=== PATIENT | female | born 1975 ===

== ENCOUNTER 2017-05-08 16:16 | Emergency (ER) | payer OTHER ==
[~2017-05-08] VITALS: Ht 172.7 cm; Wt 58.3 kg
[2017-05-08 16:20] VITALS: BP 192/112; PULSE 105; RESP 16; TEMP 98.6; O2SAT 98
[2017-05-08 16:30] VITALS: BP 177/98; PULSE 87; RESP 18; O2SAT 99
--- NOTE | 2017-05-08 16:41 | PD ---
HPI Chief Complaint: General Weakness Time Seen by Provider: 16:24 Travel History International Travel<30 days: No Contact w/Intl Traveler<30days: No Traveled to known affect area: No History of Present Illness HPI 41-year-old female complains of chest pain, shortness of breath, dizziness, nausea and generalized malaise. Patient has history of AML which was diagnosed 6 years ago. Patient received chemotherapy and bone marrow transplant. Patient 's in remission for the past 6 years. Patient has been seen at [facility] in [place]. Patient states that the symptoms started about 2 hours prior to coming to the emergency room. Patient denies any headache. Patient denies any visual change. Patient denies any neck pain. Patient states that the chest pain is a heaviness across anterior chest wall. Patient denies any pain radiation. Patient denies palpitation. Patient denies diaphoresis. Patient denies coughing congestion fever chills. Patient denies abdominal pain. Patient states that she has nausea but no vomiting or diarrhea. Patient states that she noticed some discoloration on the left hand second third and fourth fingers also the right fourth finger. Patient states that she had the same symptoms when she was diagnosed with AML 6 years ago. Patient was on control pills until 2 months ago. PFSH Past Medical History ?: Unknown LMP: STATES 2ND WEEK IN MARCH Social History Tobacco Use: No Allergies-Medications (Allergen,Severity, Reaction): Coded Allergies: No Known Allergies (Unverified , 05/08/17) Reported Meds & Prescriptions Reported Meds & Active Scripts Active Bactrim DS (Sulfamethoxazole-Trimethoprim) 800-160 Mg Tab 1 Tab PO BID Review of Systems General / Constitutional: No: Fever Eyes: No: Visual changes HENT: Positive: Lightheadedness, No: Headaches Cardiovascular: Positive: Chest Pain or Discomfort Respiratory: Positive: Shortness of Breath Gastrointestinal: Positive: Nausea, No: Abdominal Pain Genitourinary: No: Dysuria Musculoskeletal: No: Pain Skin: No Rash Neurologic: No: Weakness Psychiatric: No: Depression Endocrine: No: Polydipsia Hematologic/Lymphatic: No: Easy Bruising Physical Exam Narrative GENERAL: Well-nourished, well-developed patient. SKIN: Focused skin assessment warm/dry. Patient has mild ecchymosis noted on the dorsal aspect of middle and distal phalange of the left hand second third and fourth fingers. Patient has mild ecchymosis on the middle phalange right fourth finger middle phalange dorsally. Full range of motion all fingers. HEAD: Normocephalic. EYES: No scleral icterus. No injection or drainage. NECK: Supple, trachea midline. No JVD or lymphadenopathy. CARDIOVASCULAR: Regular rate and rhythm without murmurs, gallops, or rubs. RESPIRATORY: Breath sounds equal bilaterally. No accessory muscle use. GASTROINTESTINAL: Abdomen soft, non-tender, nondistended. MUSCULOSKELETAL: No cyanosis, or edema. BACK: Nontender without obvious deformity. No CVA tenderness. Neurologic exam normal. Data Data Last Documented VS Vital Signs Date Time Temp Pulse Resp B/P (MAP) Pulse Ox O2 Delivery O2 Flow Rate FiO2 05/08/17 18:25 05/08/17 17:59 72 16 98 Room Air 05/08/17 16:20 98.6 Orders Orders Electrocardiogram (05/08/17 16:34) Complete Blood Count With Diff (05/08/17 16:34) Comprehensive Metabolic Panel (05/08/17 16:34) Creatine Kinase (Cpk) (05/08/17 16:34) Troponin I (05/08/17 16:34) Prothrombin Time / Inr (Pt) (05/08/17 16:34) Act Partial Throm Time (Ptt) (05/08/17 16:34) Urinalysis - C+S If Indicated (05/08/17 16:34) Thyroid Stimulating Hormone (05/08/17 16:34) Chest, Single Ap (05/08/17 16:34) Iv Access Insert/Monitor (05/08/17 16:34) Ecg Monitoring (05/08/17 16:34) Oximetry (05/08/17 16:34) Ed Urine Pregnancytest Poc (05/08/17 16:34) D-Dimer (05/08/17 16:34) Urine Culture (05/08/17 16:55) Labs Laboratory Tests Test 05/08/17 16:55 White Blood Count 4.7 TH/MM3 Red Blood Count 4.69 MIL/MM3 Hemoglobin 13.7 GM/DL Hematocrit 41.4 % Mean Corpuscular Volume 88.3 FL Mean Corpuscular Hemoglobin 29.3 PG Mean Corpuscular Hemoglobin Concent 33.2 % Red Cell Distribution Width 12.5 % Platelet Count 210 TH/MM3 Mean Platelet Volume 6.9 FL Neutrophils (%) (Auto) 59.7 % Lymphocytes (%) (Auto) 32.2 % Monocytes (%) (Auto) 6.6 % Eosinophils (%) (Auto) 1.0 % Basophils (%) (Auto) 0.5 % Neutrophils # (Auto) 2.9 TH/MM3 Lymphocytes # (Auto) 1.5 TH/MM3 Monocytes # (Auto) 0.3 TH/MM3 Eosinophils # (Auto) 0.0 TH/MM3 Basophils # (Auto) 0.0 TH/MM3 CBC Comment DIFF FINAL Differential Comment Prothrombin Time 10.7 SEC Prothromb Time International Ratio 1.0 RATIO Activated Partial Thromboplast Time 26.4 SEC D-Dimer Quantitative (PE/DVT) 0.21 MG/L FEU Urine Color YELLOW Urine Turbidity CLEAR Urine pH 6.0 Urine Specific Gantt 1.027 Urine Protein NEG mg/dL Urine Glucose (UA) NEG mg/dL Urine Ketones TRACE mg/dL Urine Occult Blood MOD Urine Nitrite NEG Urine Bilirubin NEG Urine Leukocyte Esterase NEG Urine RBC 0-3 /hpf Urine WBC 9-14 /hpf Urine Squamous Epithelial Cells 0-5 /hpf Urine Hyaline Casts 3-5 /lpf Urine Fine Granular Casts 0-2 /lpf Urine Mucus MANY /lpf Microscopic Urinalysis Comment CULTURE INDICATED Blood Urea Nitrogen 14 MG/DL Creatinine 1.00 MG/DL Random Glucose 93 MG/DL Total Protein 7.6 GM/DL Albumin 4.1 GM/DL Calcium Level 9.2 MG/DL Alkaline Phosphatase 78 U/L Aspartate Amino Transf (AST/SGOT) 30 U/L Alanine Aminotransferase (ALT/SGPT) 42 U/L Total Bilirubin 0.5 MG/DL Sodium Level 139 MEQ/L Potassium Level 4.0 MEQ/L Chloride Level 104 MEQ/L Carbon Dioxide Level 26.7 MEQ/L Anion Gap 8 MEQ/L Estimat Glomerular Filtration Rate 61 ML/MIN Total Creatine Kinase 98 U/L Troponin I LESS THAN 0.02 NG/ML Thyroid Stimulating Hormone 3rd Gen 2.090 uIU/ML [facility] Medical Decision Making Medical Screen Exam Complete: Yes Emergency Medical Condition: Yes Interpretation(s) Last Impressions Chest X-Ray 05/08/17 2394 Signed Impressions: Service Date/Time: Monday, May 08, 2017 17:16 - CONCLUSION: 1. No acute cardiopulmonary findings. Dain Montoya MD 1800 p.m. EKG shows sinus rhythm nonspecific ST-T wave change. CBC within normal limit. CMP within normal limit. Cardiac enzymes are normal. INR 1.0. D-dimer 0.21. UA positive for WBC. Differential Diagnosis Differential diagnosis including vasovagal reaction, angina, WI, PE, pneumothorax, electrolyte abnormality, dehydration, acute exacerbation of AML. Narrative Course 41-year-old female with dizziness, nausea, chest pain, shortness of breath, discoloration of the fingers. History of AML. Diagnosis Primary Impression: Atypical chest pain Additional Impressions: UTI (urinary tract infection) Qualified Codes: N30.00 - Acute cystitis without hematuria Ecchymosis Patient Instructions: General Instructions Additional Instructions: Bactrim DS as directed. Follow-up with personal physician. Return if worse. Med/Other Pt SpecificInfo: Prescription(s) given Scripts Sulfamethoxazole-Trimethoprim (Bactrim DS) 800-160 Mg Tab 1 TAB PO BID for Infection, #6 TAB 0 Refills Prov: Alli Martin MD 05/08/17 Disposition: 01 DISCHARGE HOME Condition: Stable Alli Martin MD May 08, 2017 16:41
[2017-05-08 16:50] VITALS: RESP 18; O2SAT 98
[2017-05-08 17:00] VITALS: BP 146/96; PULSE 78; RESP 18; O2SAT 99
[2017-05-08 17:08] LABS: AUTOMATED NEUTROPHIL # 2.9 TH/MM3 (1.8-7.7); BASOPHIL % 0.5 % (0.0-2.0); HEMATOCRIT 41.4 % (35.0-46.0); HEMO FLAGS DIFF FINAL; LYMPH % 32.2 % (9.0-44.0); LYMPHOCYTE # 1.5 TH/MM3 (1.0-4.8); MEAN CELL VOLUME 88.3 FL (80.0-100.0); MEAN CORPUSCULAR HEMOGLOBIN 29.3 PG (27.0-34.0); MEAN CORPUSCULAR HGB CONC 33.2 % (32.0-36.0); MONO % 6.6 % (0.0-8.0); NEUT % 59.7 % (16.0-70.0); PLATELET COUNT 210 TH/MM3 (150-450); RED BLOOD COUNT 4.69 MIL/MM3 (4.00-5.30); RED CELL DISTRIBUTION WIDTH 12.5 % (11.6-17.2); WHITE BLOOD COUNT 4.7 TH/MM3 (4.0-11.0)
[2017-05-08 17:09] LABS: BLOOD, URINE MOD (NEG); GLUCOSE,URINE NEG (NEG); KETONE, URINE TRACE mg/dL (NEG); NITRITE,URINE NEG (NEG)
[2017-05-08 17:16] LABS: CHLORIDE 104 MEQ/L (98-107); SODIUM (NA) 139 MEQ/L (136-145)
[2017-05-08 17:18] LABS: URINE COLOR YELLOW (YELLW/STRAW)
[2017-05-08 17:19] LABS: MUCUS URINE MANY /lpf (OCC); RBC, URINE 0-3 /hpf (0-3); SQUAMOUS EPITHELIAL CELL URINE 0-5 /hpf (0-5)
[2017-05-08 17:20] LABS: ANION GAP 8 MEQ/L (5-15); BICARBONATE 26.7 MEQ/L (21.0-32.0); BLOOD UREA NITROGEN 14 MG/DL (7-18); COMMENT (UR) CULTURE INDICATED; CULTURE IF INDICATED CULTURE INDICATED
[2017-05-08 17:22] LABS: APTT (PATIENT) 26.4 SEC (24.3-30.1); PROTHROMBIN TIME - PATIENT 10.7 SEC (9.8-11.6)
[2017-05-08 17:23] LABS: ALT (GPT) 42 U/L (10-53); AST (GOT) 30 U/L (15-37); GLOMERULAR FILTRATION RATE 61 ML/MIN (>89)
[2017-05-08 17:24] LABS: TOTAL BILIRUBIN ADULT 0.5 MG/DL (0.2-1.0)
[2017-05-08 17:25] LABS: ALKALINE PHOSPHATASE 78 U/L (45-117)
[2017-05-08 17:26] LABS: CREATINE KINASE 98 U/L (26-192)
--- NOTE | 2017-05-08 17:29 | RADRPT ---
EXAM DATE/TIME: 05/08/2017 17:16 [facility] COMPARISON: No previous studies available for comparison. INDICATIONS : Chest pressure today. MEDICAL HISTORY : Leukemia. SURGICAL HISTORY : None. ENCOUNTER: Initial ACUITY: 1 day PAIN SCORE: 2/10 LOCATION: Bilateral chest FINDINGS: A single view of the chest demonstrates the lungs to be symmetrically aerated without evidence of mas s, infiltrate or effusion. The cardiomediastinal contours are unremarkable. Osseous structures are intact. CONCLUSION: 1. No acute cardiopulmonary findings. Dain Montoya MD on May 08, 2017 at 17:27 Board Certified Radiologist. This report was verified electronically.
[2017-05-08 17:59] VITALS: BP 128/72; PULSE 72; RESP 16; O2SAT 98
[2017-05-08] MEDS ORDERED: BACT800T5 PO (18:06)
--- NOTE | 2017-05-09 15:14 | EKG ---
Date Performed: 05/08/2017 Time Performed: 16:40:46 PTAGE: 41 years EKG: Sinus rhythm POSSIBLE LEFT ATRIAL ENLARGEMENT BORDERLINE ECG NO PREVIOUS TRACING DOCTOR: Amairani Johnston Interpretating Date/Time 05/09/2017 15:12:50
== END 2017-05-08 18:30 | disposition home or self-care (01) ==
LOC: PHED 16:16
DX: R07.89 Other chest pain (principal); N30.00 Acute cystitis without hematuria; R23.3 Spontaneous ecchymoses; R06.02 Shortness of breath; R42 Dizziness and giddiness; R11.0 Nausea; R53.81 Other malaise; R94.31 Abnormal electrocardiogram [ECG] [EKG]; C94.81 Other specified leukemias, in remission
CPT/HCPCS: 71010; 80053; 81001; 82550; 84443; 84484; 84703; 85025; 85379; 85610; 85730; 87086; 93005; 99285